=== PATIENT | female | born 1980 | race Caucasian/White ===

== ENCOUNTER 2018-03-27 20:44 | Emergency (ER) | payer BC ==
[~2018-03-27] VITALS: Ht 162.6 cm; Wt 104.5 kg
[2018-03-27 20:46] VITALS: TEMP 98.7
[2018-03-27 20:56] LABS: COLLECTION METHOD CLEAN CATCH
[2018-03-27 21:06] LABS: MUCOUS Present /lpf; PH 6 (5-8); SQUAMOUS EPITHELIAL 0-2 /hpf; URINE APPEARANCE Clear; URINE BACTERIA None Seen /hpf; URINE BILIRUBIN Negative (NEGATIVE); URINE BLOOD 1+ (NEGATIVE); URINE COLOR Yellow; URINE GLUCOSE Negative (NEGATIVE); URINE KETONE Negative (NEGATIVE); URINE LEUKOCYTE ESTERASE Negative (NEGATIVE); URINE NITRATE Negative (NEGATIVE); URINE PROTEIN(semi-quant) 1+ (NEGATIVE); URINE UROBILINOGEN Negative (NEGATIVE)
[2018-03-27] MEDS ORDERED: LEXAPRO 5MG5 MG (21:39)
[2018-03-27] MEDS ORDERED: GLUCOPHAGE500 MG/TAB PO (21:39)
[2018-03-27] MEDS ORDERED: NORCO 325 MG-51 TAB PO (23:01)
[2018-03-27 23:45] VITALS: BP 115/59; PULSE 81
== END 2018-03-27 23:45 | disposition home or self-care (01) ==
LOC: COL.ER 20:44
PROVIDERS: Nurse Practitioner Primary Care
DX: N20.0 Calculus of kidney (principal); E11.9 Type 2 diabetes mellitus without complications; Z79.84 Long term (current) use of oral hypoglycemic drugs; Z90.49 Acquired absence of other specified parts of digestive tract; Z90.710 Acquired absence of both cervix and uterus; Z87.442 Personal history of urinary calculi
CPT/HCPCS: J1170; J2405